=== PATIENT | male | born 1965 | race Caucasian/White ===

== ENCOUNTER 2017-11-21 16:27 | Emergency (ER) | payer OTHER ==
[~2017-11-21] VITALS: Ht 188 cm; Wt 188.2 kg
--- NOTE | ~2017-11-21 | EKG ---
[address] [place] [address] ELECTROCARDIOGRAM REPORT Name: DIEGO FREEMAN Bhavik Room #: [facility] SILVANA Chung#: [id number] Admission: 11/21/17 Attend Phys: Discharge: Date of : 69 Report #: [id number] THIS REPORT FOR: //name// [facility] ED Test Date: 2017-11-21 Test Time: 16:42:06 Pat Name: DIEGO FREEMAN Department: Room: Gender: Quantitative Strategy Analyst: ANISA : 1965 Requested By: Mily Vazquez Order Number: [id number] MD: Michael Crow Measurements Intervals [place] Rate: 99 P: 39 RI: 167 QRS: 22 QRSD: 93 T: 30 QT: 350 QTc: 450 Interpretive Statements Sinus rhythm No previous ECG available for comparison Electronically Signed On 11-21-2017 17:11:00 [employer] by Michael Crow [email or web address] <ELECTRONICALLY SIGNED> By: Michael Crow MD 11/21/17 1711 1642 1642 Michael Crow MD /EPI
[2017-11-21] MEDS ORDERED: OMEPRAZOLE 20 M20 M1 PO (16:47)
[2017-11-21] MEDS ORDERED: BENICAR40 MG PO (16:47)
[2017-11-21] MEDS ORDERED: NAPROSYN500 MG PO (16:47)
[2017-11-21] MEDS ORDERED: HYDROCHLOROTHIA25 M2 PO (16:47)
[2017-11-21] MEDS ORDERED: NORVASC5 MG PO (16:47)
[2017-11-21 16:52] LABS: HEMATOCRIT 40.3 % (42.0-52.0); HEMOGLOBIN 13.5 gm/dL (14.0-18.0); MCH 28.4 pg (26.0-34.0); MCHC 33.6 g/dL (28.0-37.0); MCV 84.7 fL (80.0-100.0); RBC 4.75 mil/uL (4.50-6.00); RDW 14.6 % (10.5-14.5)
[2017-11-21 17:04] LABS: ANION GAP 8 mmol/L (7-16); BUN 14 mg/dL (7-18); CHLORIDE 101 mmol/L (98-107); CO2 27 mmol/L (21-32); GLUCOSE 98 mg/dL (74-106); POTASSIUM 3.7 mmol/L (3.5-5.1); SODIUM 136 mmol/L (136-145)
[2017-11-21 17:13] LABS: TROPONIN-I < 0.04 ng/mL (<0.06)
[2017-11-21] MEDS ORDERED: ULTRAM 50MG TAB50 MG PO (19:20)
== END 2017-11-21 19:20 | disposition home or self-care (01) ==
LOC: ER 16:27
PROVIDERS: Physician Assistant
DX: R07.9 Chest pain, unspecified (principal); I10 Essential (primary) hypertension; G47.30 Sleep apnea, unspecified; Z88.2 Allergy status to sulfonamides; Z72.0 Tobacco use

== ENCOUNTER 2021-06-02 19:55 | Emergency (ER) | payer OTHER ==
[~2021-06-02] VITALS: Ht 188 cm; Wt 124.7 kg
[~2021-06-02 19:55] MED LIST: BENICAR40 MG PO; HYDROCHLOROTHIA25 M2 PO; NAPROSYN500 MG PO; NORVASC5 MG PO; OMEPRAZOLE 20 M20 M1 PO; ULTRAM 50MG TAB50 MG PO
[2021-06-02] MEDS ORDERED: SUPER THERAVIT1 EACH PO (20:12)
[2021-06-02 20:59] LABS: BASOPHILS 0.5 % (0.0-2.0); HEMATOCRIT 34.1 % (42.0-52.0); LYMPHOCYTES 29.6 % (24.0-44.0); MCH 26.7 pg (26.0-34.0); MCHC 32.3 g/dL (28.0-37.0); MCV 82.6 fL (80.0-100.0); MONOCYTES 9.3 % (1.0-8.0); PLATELET COUNT 201 thou/uL (150-400); POLYS 57.6 % (36.0-66.0); RBC 4.12 mil/uL (4.50-6.00); WBC 6.9 thou/uL (4.0-11.0)
[2021-06-02 21:07] LABS: ANION GAP 5 mmol/L (7-16); BUN 9 mg/dL (7-18); CALCIUM 8.2 mg/dL (8.5-10.1); CHLORIDE 105 mmol/L (98-107); CO2 29 mmol/L (21-32); CREATININE 0.8 mg/dL (0.7-1.3); GLUCOSE 105 mg/dL (74-106); POTASSIUM 3.6 mmol/L (3.5-5.1); SODIUM 139 mmol/L (136-145)
[2021-06-02 21:17] LABS: ALBUMIN 3.3 g/dL (3.4-5.0); SGOT 16 U/L (15-37); SGPT 18 U/L (16-63); TOTAL BILIRUBIN 0.3 mg/dL (0.2-1.0); TOTAL PROTEIN 6.8 g/dL (6.4-8.2); TROPONIN-I <0.06 ng/mL (<0.06)
[2021-06-02 23:55] VITALS: BP 157/87
--- NOTE | 2021-06-03 07:19 | EKG ---
[address] [place] [address] ELECTROCARDIOGRAM REPORT Name: DIEGO FREEMAN Room #: [facility] [place]#: [id number] Admission: 06/02/21 Attend Phys: Discharge: 06/02/21 Date of : 69 Report #: [id number] [facility] ED Test Date: 2021-06-02 Test Time: 20:03:59 Pat Name: DIEGO FREEMAN Department: Room: Gender: M Sports Management Internship: WEST : 1965 Requested By: Stephen Sepulveda Order Number: [id number] MD: Bienvenido Goss Measurements Intervals [place] Rate: 69 P: 42 [place]: 176 QRS: 32 QRSD: 95 T: 43 QT: 382 QTc: 410 Interpretive Statements Sinus rhythm Compared to ECG 11/21/2017 16:42:06 No significant changes Electronically Signed On 06-03-2021 7:19:17 CDT by Bienvenido Goss [email or web address] <ELECTRONICALLY SIGNED> By: Bienvenido Goss MD, [facility] 06/03/21 0719 02 02 Bienvenido Goss MD, FACC /EPI
== END 2021-06-02 23:55 | disposition home or self-care (01) ==
LOC: ER 19:55
PROVIDERS: Emergency Medicine
DX: R07.89 Other chest pain (principal); I10 Essential (primary) hypertension; G47.30 Sleep apnea, unspecified; E66.9 Obesity, unspecified; Z79.899 Other long term (current) drug therapy; Z88.2 Allergy status to sulfonamides